=== PATIENT | male | born 1950 | race Caucasian/White ===

== ENCOUNTER → 2024-03-17 09:00 | Outpatient (REF) | payer MEDICARE, OTHER, SELFPAY | LOC: DHSLP 09:00 | PROVIDERS: ATTENDING PHYSICIAN Internal Medicine | DX: G47.33 Obstructive sleep apnea (adult) (pediatric) (principal); R06.83 Snoring; J43.9 Emphysema, unspecified; I10 Essential (primary) hypertension | CPT/HCPCS: 95806 ==

== ENCOUNTER 2025-03-28 08:19 | Observation (INO) | payer MEDICARE, OTHER, SELFPAY ==
[2025-03-28] VITALS (10 sets, daily range): BP systolic 141–181; BP diastolic 86–110; BMI 30.1
--- NOTE | 2025-03-28 04:37 | ED.CVA ---
History of Present Illness
General
Chief Complaint: CVA/TIA Symptoms
Source: patient and spouse
Exam Limitations: none
Time Seen by Provider: 03/28/25 04:29
Nursing documentation reviewed up to this point in time: agreed with
Onset of Stroke Symptoms
Onset of symptoms known: Yes
Date of onset of symptoms: 03/28/25
Time of onset of symptoms: 03:30
History of Present Illness
History of Present Illness:
Note:
CHIEF COMPLAINT(S)
- Left-sided weakness and heaviness.
HISTORY OF PRESENT ILLNESS
The patient is a 74-year-old male who presented with left-sided weakness and heaviness. The symptoms began in the middle of the night, around 3:00 AM, when the patient woke up to urinate. He noticed difficulty and a sensation of heaviness
particularly on the left side of his body, affecting both the arm and leg. The patient describes this sensation as his left side feeling heavier than the right. He reports no chest pain and was able to breathe normally. The patient took aspirin
prior to coming to the emergency department but does not take it regularly.
SOCIAL HISTORY
The patient occasionally smokes cigars and drinks alcohol less than once a week. He denies the use of illicit drugs.
PHYSICAL EXAM
- Nursing notes reviewed and vital signs reviewed.
- The patient exhibits no apparent neurological deficits during the examination.
- Ears, Nose, and Tongue: Pupils are equal, round, and reactive to light, with extraocular muscles intact.
- Neck: No jugular venous distention.
- Cardiovascular: S1 and S2 sounds are clear with no murmurs.
- Pulmonary: Lungs are clear bilaterally; no respiratory distress observed.
- Abdomen: Soft, non-tender, non-distended with no masses or organomegaly.
- Extremities: Normal pulses in all extremities; full range of motion observed.
- Neurological: Cranial nerves II through XII are intact; muscle strength in all extremities is equal, with no sensory deficits.
PROBLEM LIST
- Acute: Left-sided weakness.
- Chronic: None mentioned.
PLAN
- The patient will undergo further evaluation to rule out conditions such as a transient ischemic attack or stroke due to the left-sided weakness and heavy sensation. This will likely include imaging and possibly other diagnostic tests as deemed
appropriate.
DIFFERENTIAL DIAGNOSIS
The Differential Diagnosis includes, in no particular order and is not limited to:
1. Transient Ischemic Attack
2. Cerebrovascular Accident (Stroke)
3. Peripheral Nerve Disorder
4. Multiple Sclerosis
5. Brain Tumor
6. Hypoglycemia
7. Electrolyte Imbalance
8. [place] Palsy (though less likely given the limb involvement)
9. Migraine Variant
10. Conversion Disorder
CARE-UPDATE
03/28/25 - 05:[address] perfusion, CT angiography of the head and neck, and non-contrast CT head results are normal, showing only chronic microvascular disease. The patients weakness is improving, with an NIH stroke scale score of zero, indicating no
immediate need for TNK treatment. The patient self-administered aspirin 325 mg at home. The plan is to admit the patient for further evaluation of a transient ischemic attack (TIA).
EKG
My independent EKG interpretation is:
- Time of EK:32 AM on 03/28/2025
- Rhythm: Sinus bradycardia
- Heart rate: 50 bpm
- [place]: Left axis deviation
- QRS duration: Normal
- QT interval: Normal
- MS interval: Normal
- Abnormalities: No signs of ischemia
Disposition:
SUMMARY OF ENCOUNTER
The patient, a 74-year-old male, presented to the emergency department with left-sided weakness and heaviness that began in the middle of the night. The evaluation included imaging and diagnostic tests to rule out conditions such as a stroke or a
transient ischemic attack (TIA). The CT perfusion, CT angiography, and non-contrast CT head results showed no acute abnormalities, only chronic microvascular disease. The patients symptoms showed improvement, and an NIH stroke scale score of zero
was noted, negating the need for thrombolytic treatment. The patient had taken aspirin 325 mg before presenting to the emergency department.
DISPOSITION
Admit
ASSESSMENT
The patient is assessed with a probable transient ischemic attack (TIA) given the sudden onset of left-sided weakness with improvement, and the normal imaging studies.
PLAN
The plan is to admit the patient for telemetry and further evaluation under the care of the hospitalist to monitor for any recurrence of symptoms or any developments suggestive of a cerebrovascular event.
INDEPENDENT REVIEW OF LABS AND INTERPRETATION OF TESTS
- My independent EKG interpretation is sinus bradycardia, heart rate 50 bpm, with left axis deviation, normal QRS duration, QT, and MS interval, and no signs of ischemia.
MEDICATION RECONCILIATION
- The patient self-administered aspirin 325 mg prior to coming to the emergency department.
MEDICAL DECISION MAKING
- Number and Complexity of Problems Addressed: The differential diagnosis includes Transient Ischemic Attack, Cerebrovascular Accident (Stroke), Peripheral Nerve Disorder, Multiple Sclerosis, Brain Tumor, Hypoglycemia, Electrolyte Imbalance, [place]
Palsy, Migraine Variant, and Conversion Disorder.
- Data:
Category 1: Non-emergency department records reviewed include normal CT perfusion, CT angiography, and non-contrast CT head results.
Category 2: My independent interpretation of EKG indicates sinus bradycardia with left axis deviation.
DIAGNOSIS
- Transient Ischemic Attack (TIA) - ICD-10: G45.9
Phy Exam
Physical Exam
Physical Exam:
.
Course
Orders/Labs/Results
Orders:
Orders
03/28/25 04:23
EKG [Electrocardiogram (*1)] Urgent
Reason for Study: Fatigue / Weakness
EKG- Treatment ONCE
03/28/25 04:33
CT HEAD STROKE ALERT W/o Cont Urgent
Comment:
Reason For Exam: Left Side Heaviness
Bedside Glucose- Treatment ONCE
Cardiac Monitoring- Treatment ONCE
IV Insert/Care/Rem.- Treatment PRN
Vital Signs As Directed
Frequency: Other
Weight As Directed
Frequency: Once
Comment: ZERO STRETCHER SCALE FOR ACCURATE WEIGHT
O2 Therapy [RESP] Urgent
Titrate/Wean O2 to maintain O2 sat greater than (%): 93
Special Instructions: MAINTAIN CONTINUOUS O2 SATS > OR = 93%
03/28/25 04:34
CT HEAD/NECK ANG STROKE ALERT Urgent
Comment: incorrect order by attending
Reason For Exam: left sided weakness, upon waking 330
Cardiac Monitoring- Treatment ONCE
Pulse Ox/cont/shift [RESP] Stat
Quantity: 1
03/28/25 04:36
Complete Blood Count/With Diff Urgent
Comprehensive Metabolic Panel Urgent
PTT Urgent
Prothrombin Time Urgent
Troponin I Urgent
03/28/25 04:38
CT BRAIN PERF STROKE ALERT Urgent
Comment:
Reason For Exam: left side weakness 330a
Abnormal Lab Results
03/28/25
04:36
MCH 32.1 H pg
(27.0-31.0)
Absolute Monos (auto) 0.8 H 10^3/uL
(0.1-0.6)
Monocytes % 11.6 H %
(1.7-9.3)
BUN 22 H mg/dl
(9-20)
Glucose 120 H mg/dl
(70-99)
03/28/25 04:36
03/28/25 04:36
Vital Signs
Initial and Last Documented VS:
Initial Vital Signs
Temp Pulse Resp BP Pulse Ox
97.8 F 61 18 154/106 98
03/28/25 04:24 03/28/25 04:24 03/28/25 04:24 03/28/25 04:24 03/28/25 04:24
Last Documented Vital Signs
Temp Pulse Resp BP Pulse Ox
97.7 F 61 18 159/88 96
03/28/25 05:00 03/28/25 04:54 03/28/25 04:24 03/28/25 05:00 03/28/25 05:05
*Pulse Oximetry
SaO2: 98
Oxygen Mode of Delivery: Room air
Patient hypoxic: no
*Critical Care Note
Total Time (30-74mins, 75-104mins- exclusive of procedures): Not Applicable
ED Attending Note
-
Portions of this chart may have been created with voice recognition software.� Occasional wrong word or��sound alike� substitutions may have occurred due to the inherent limitations of voice recognition software.
Discharge Plan
Departure
Patient Disposition: Admit
Date of Disposition: 03/28/25
Time of Disposition: 05:49
Admit to: Telemetry
Presentation/result/management discussed w/ accepting MD/DO: Hospitalist
Patient with high blood pressure during this ER visit?: Yes
Condition: Good
Discharge Problem:
Transient ischemic attack (TIA)
Referrals:
UNKNOWN - PT DOES,NOT KNOW [Family Provider]
Interventions
Interventions:
*Risk Screen - Suicide Last Done: 03/28/25 04:25
*General Assessment Last Done: 03/28/25 05:05
*Neglect/Abuse Screening Last Done: 03/28/25 04:25
*ED- Fall Risk Assessment Last Done: 03/28/25 05:05
*ED COVID-19 Vaccine History Last Done: 03/28/25 05:05
ED- Pulmonary Assessment Last Done: 03/28/25 05:05
ED- Neurological Assessment Last Done: 03/28/25 05:05
ED- Cardiac Assessment Last Done: 03/28/25 05:05
ED Swallowing Screen Last Done: 03/28/25 05:39
Discharge Date and Time
Print Language: UZBEK
[2025-03-28 04:43] LABS: Hematocrit 45.7 % (39.0-52.0); Hemoglobin 16.4 g/dL (13.0-18.0); Mean Corp Hgb Conc. 35.9 g/dL (33.0-37.0); Mean Corpuscular Volume 89.4 fL (80.0-94.0); Nucleated Red Blood Cells % 0 % (-); Platelet Count 178 10^3/uL (130-400); Red Cell Dist. Width 12.8 % (11.5-14.5)
[2025-03-28 04:56] LABS: INR 0.84; PT 12.0 Sec (11.4-14.6)
[2025-03-28 04:57] LABS: APTT 26.5 Sec (23.4-35.0)
[2025-03-28 05:08] LABS: ALT (SGPT) 14 U/L (0-50); AST (SGOT) 20 U/L (17-59); Albumin 4.2 g/dl (3.5-5.0); Alkaline Phosphatase 52 U/L (38-126); Blood Urea Nitrogen 22 mg/dl (9-20); Calcium 8.8 mg/dl (8.4-10.2); Carbon Dioxide 24 mmol/L (22-30); Chloride 105 mmol/L (98-107); Estimated Creatinine Clearance 77 ml/min; Glucose 120 mg/dl (70-99); Potassium 4.1 mmol/L (3.5-5.1); Sodium 135 mmol/L (135-145); Total Protein 6.9 g/dl (6.3-8.2); eGFR > 60.00
[2025-03-28 06:15] LABS: Troponin I < 0.012 ng/ml
--- NOTE | 2025-03-28 06:48 | HPS.HSE ---
Family Physician
-
Family Physician: NOT KNOW UNKNOWN - PT DOES
Chief Complaint
-
L Weakness
History of Present Illness
Patient is a 74y M with PMH significant for hypertension and depression who presents to ED complaining of L sided weakness. Patient states that he felt well yesterday upon going to bed. No recent illness, fevers / chills, etc. He woke around
3:30 this AM to use the bathroom. When he stood from bed, his LLE 'gave out' and he fell onto his R knee. Patient noted that his LLE and his LUE felt very heavy and sluggish. he had no numbness or tingling. No headache, slurred speech or vision
changes. Pateint woke his and took a full dose ASA at home and then presented to the ED for further evaluation.
He denies any prior history of similar symptoms. No prior OR, CVA, etc.
Upon arrival to the ED, patient noted that his symptoms had fully resolved.
He is currently resting comfortably and feels at baseline.
Medical History
Past Medical History
Past Medical History: Reports Other
Additional Past Medical History:
Hypertension
Anxiety / Depression
Past Surgical History: Reports Other
Additional Past Surgical History:
T&A
Social History
Tobacco: Smoker (Current every day cigar smoker. About 3-4 cigars daily.)
Alcohol: Occasional
Drug: None
Family History
Family History: Other (Father: CVA, CHF Mother: TIAs)
Allergies / Home Medications
Allergies reflects when Allergies were last updated in [employer].
Home Medications with original date entered in [employer]
Allergy/Medication List:
Allergies
Allergy/AdvReac Type Severity Reaction Status Date / Time
No Known Allergies Allergy Verified 03/28/25 04:28
Home Medications
escitalopram oxalate 10 mg tablet (Lexapro) 10 mg PO DAILY 03/28/25
ramipril 5 mg capsule 5 mg PO DAILY 03/28/25
Review of Systems
-
History Source: Patient
A 12 point ROS was completed and negative except as noted: Yes
Constitutional: Denies Fever or Chills
Respiratory: Denies Cough or Trouble Breathing
Cardiac: Denies Chest Pain or Palpitations
Abdomen/GI: Denies Abdominal Pain, Nausea, Vomiting or Diarrhea
: Denies Dysuria or Frequency
Musculoskeletal: Denies Joint Pain or Edema
Neurological: Reports Weakness; Denies Dizzy, Headache or Numbness
Physical Exam
Vital Signs
Vital Signs
Temp Pulse Resp BP Pulse Ox
97.7 F 52 20 159/94 96
03/28/25 05:00 03/28/25 06:22 03/28/25 06:22 03/28/25 06:22 03/28/25 05:05
Physical Exam
General: Other (74y M in no acute distress.)
HEENT: Moist mucous membranes and PERRLA
Respiratory: Clear; No Wheezes, Rales or Rhonchi
Cardiac: S1/S2 and Regular Rhythm; No Murmur
GI: Soft, Non Tender, Non Distended and Normal Bowel Sounds
Musculoskeletal: No Clubbing, No Cyanosis and No Edema
Neuro: AO x 3, No Motor Deficits and Nonfocal/grossly intact
Laboratory Results
-
03/28/25 04:36
03/28/25 04:36
Laboratory Results
PT 12.0 Sec (11.4-14.6) 03/28/25 04:36
INR 0.84 03/28/25 04:36
APTT 26.5 Sec (23.4-35.0) 03/28/25 04:36
Total Bilirubin 0.5 mg/dl (0.2-1.3) 03/28/25 04:36
AST 20 U/L (17-59) 03/28/25 04:36
ALT 14 U/L (0-50) 03/28/25 04:36
Alkaline Phosphatase 52 U/L (38-126) 03/28/25 04:36
Troponin I < 0.012 ng/ml 03/28/25 04:36
Impression/Plan
-
A/P: Patient is a 74y M with PMH significant for hypertension who presents to ED for evaluation of left sided weakness upon waking this AM.
CVA / TIA
- Observe overnight for further evaluation and treatment.
- Symptoms have fully resolved, NIH = 0 at present.
- CT, CT Perfusion unremarkable.
- CTA shows diminutive proximal basilar artery.
- Follow neuro exam for any changes / recurrent symptoms.
- ASA / Plavix.
- MRI. Neuro eval. PT / OT.
- Check lipids, A1C, etc.
- Adjust med regimen as needed for risk factor modification.
Hypertension
- Continue ramipril.
- Permissive hypertension for now with hydralazine for very high BP.
- Adjust regimen as needed for goal of normotension at discharge.
Anxiety / Depression
- Stable. Continue Lexapro.
DVT Prophylaxis: SCDs
Code Status: Full
--- NOTE | 2025-03-28 09:01 | CON.NEURO4 ---
Addendum entered and electronically signed by Nate Vargas MD 03/28/25 10:36:
Studies reviewed.
I have personally examined the patient. I reviewed and agree with the SPIKE MAKER's Note.
My addenda:
Awake, alert, interactive. No acute distress.
Speech intact.
Follows 2-step requests w/o difficulty. No tremor.
Extra-ocular movements grossly intact.
Facial movements full and symmetric. Hearing intact to normal conversational volume.
Normal UE movements bilaterally.
Neck: full ROM.
Chest: no dyspnea
Heart: no JVD
Ext: (-) Clubbing, (-) Cyanosis, (-) Edema
IMPRESSIONS/RECOMMENDATIONS:
Abrupt onset of left leg and arm weakness
Most likely secondary to TIA based on unremarkable CT perfusion, CT of head and absence of finding by CT angiogram of head and neck
Continue both aspirin and clopidogrel for total of 21 days, then aspirin alone potentially lifelong
Outpatient cardiac monitoring for dysrhythmia with consideration for prolonged monitoring
Outpatient cancer screening
Outpatient sleep testing as patient has known severe sleep apnea which may also be a risk factor for most recent events
Advance atorvastatin from 40 mg to 80 mg if LDL greater than 70
D/W patient
Will continue to follow patient.
Original Note:
Documented by User: Vanessa Montague NP 03/28/25 09:54
Consultation - Neurology 4
-
CONSULTING PHYSICIAN: Nate Vargas MD
REFERRING PHYSICIAN: Hospitalists/Dr. Liu
DICTATED BY: AUGUSTUS Maciel
DATE/TIME OF REQUEST: 03/28/25
DATE/TIME OF CONSULTATION: 03/28/25
Reason for Consultation: Transient left-sided weakness
History of Present Illness:
This is a 74-year-old right-handed male who has presented to the hospital with report of left-sided weakness. Patient reports that he went to bed last night (03/27/25) around 2300 in his usual state. Overnight around 0330 he woke up to use the
bathroom. Upon standing, his left leg felt weak and gave-out on him causing him to fall to the ground. He was able to get up but noted that his left arm and leg felt 'heavy.' He denies a spinning sensation but reports feeling off-balance and his
gait was abnormal. He took a full dose aspirin prior to coming to the ER. Upon arrival in the ER about 45 minutes later, his symptoms had resolved and he felt back at his baseline. Blood pressure in the ER has been elevated up to 181/105. CT head,
CTA head/neck, CT perfusion were obtained and AI interpretation is negative for any acute abnormalities. He was not a candidate for TNK/IAT due to NIHSS 0. He denies any headache, vision changes, speech/swallowing difficulty, and numbness. He denies
any history of TIA, stroke, or events like this in the past. He does not a history of severe sleep apnea and cpap usage. He notes that he lost about 35 pounds 7-8 years ago and stopped wearing his cpap after that.
Past Medical History: HTN, CKD, NILDA (not using cpap, reports lost weight), pulmonary emphysema, depression
Surgical History: Adenoidectomy.
Family History: Mother- dementia. Father- CVA.
Social History: Former cigarette smoker, occasional cigar. Occasional alcohol. Denies illicit drug usage.
Allergies: No known allergies.
Home Medications: See below.
Review of Symptoms:
Patient denies any fever, headache, chest pain, shortness of breath, GI or symptoms.
�Per the HPI.�All systems are reviewed negative except above.
Physical Exam:
The patient is afebrile, abdomen is nondistended, breathing is unlabored, skin is warm and dry, no edema, +high arches/hammertoes.
NIH Stroke Scale:
I performed the NIH stroke scale on the patient on 03/28/25 at 0910. The patient scored 0 points on the NIH stroke scale assessment, which were assigned as follows: See below.
Neurologic Examination:
The patient is awake, alert and oriented x 3. He is able to follow commands and answer questions appropriately. There is no aphasia or dysarthria. On cranial nerve assessment, pupils are 3 mm bilateral, round and reactive to light and
accommodation. Visual duvall are full. Extraocular movements are intact. Facial sensations are intact and bilaterally symmetrical, there is no facial asymmetry. Hearing is intact bilaterally to normal conversation volume. Tongue palate and uvula are
midline. Sternocleidomastoid strengths are full bilaterally. Motor strengths are 5/5 bilateral upper and lower extremities on medical research [place] scale. There is no drift or involuntary movement noted. Deep tendon reflexes are 2+ bilateral
upper and lower extremities and Babinski is absent bilaterally. There was no extinction noted on double simultaneous stimulation. Coordination is intact by finger to nose bilaterally.
Lab Results: See below.
Neuro Imaging:
1. CT Head 03/28/25: final report pending
2. CTA head/neck 03/28/25: final report pending
3. CT Perfusion 03/28/25: final report pending
Differentials for the patient's presentation include:
1. Transient left-sided weakness; etiology likely TIA versus small ischemic stroke.
2. Hypertension.
3. Bradycardia on telemetry monitoring.
Patient has the following risk factors for their symptoms: HTN, NILDA, former smoker, age
IV Tenecteplase/IAT candidacy: Not a candidate due to NIHSS 0/resolution of symptoms.
Recommendations:
-Patient would like to defer MRI brain imaging at this point, okay to obtain as an outpatient.
-Continue DAPT with aspirin 81mg and clopidogrel 75mg daily for 21 days. After 21 days, stop clopidogrel and continue aspirin 81mg daily only, indefinitely.
-Goal normotension.
-Recommend outpatient Cardiology evaluation for extended cardiac monitoring/bradycardia workup.
-LDL goal <70. Lipid panel pending. Initiate atorvastatin 40mg daily.
-Goal normoglycemia, hbA1c is pending.
-PT/OT evaluations.
-NIHSS and neurological checks per unit guidelines.
-Provide patient with a stroke education packet.
-Continue to NOT smoke.
-DVT prophylaxis.
-Would complete home sleep study to re-evaluate for sleep apnea.
-Okay to resume all usual activities.
-Follow-up with Neurology as an outpatient in about 1-2 weeks.
Discussed patient care with: Dr. Vargas, the patient
Vital Signs and Labs
-
Vital Signs and Labs:
Vital Signs
Temp Pulse Resp BP Pulse Ox
97.7 F 45 12 160/93 96
03/28/25 05:00 03/28/25 09:00 03/28/25 09:00 03/28/25 09:00 03/28/25 05:05
Lab Results
03/28/25 04:36
03/28/25 04:36
PT 12.0 Sec (11.4-14.6) 03/28/25 04:36
INR 0.84 03/28/25 04:36
APTT 26.5 Sec (23.4-35.0) 03/28/25 04:36
Sodium 135 mmol/L (135-145) 03/28/25 04:36
Potassium 4.1 mmol/L (3.5-5.1) 03/28/25 04:36
BUN 22 mg/dl (9-20) H 03/28/25 04:36
Glucose 120 mg/dl (70-99) H 03/28/25 04:36
Calcium 8.8 mg/dl (8.4-10.2) 03/28/25 04:36
Medications
-
Active Medications
Generic Name Dose Route Start Last Admin
Trade Name Freq PRN Reason Stop Dose Admin
Hydralazine HCl 5 mg 03/28/25 09:12
Hydralazine 20 Mg/Ml Vial IV 04/25/25 09:11
Q6HPRN PRN
SBP > 200 / DBP > 110
Home Medications
�Medication �Instructions �Recorded
escitalopram oxalate 10 mg tablet 10 mg PO DAILY 03/28/25
(Lexapro)
hydrochlorothiazide 12.5 mg tablet 12.5 mg PO DAILY 03/28/25
ramipril 5 mg capsule 5 mg PO DAILY 03/28/25
NIH Stroke Score
Subsequent NIH Scale
Date of Subsequent NIH Scale: 03/28/25
Time of Subsequent NIH Scale: 09:10
NIH Stroke Score
Level of Consciousness: 0 - Alert
LOC Questions: 0-Answers both correctly
LOC Commands: 0-Performs both correctly
Best Horizontal Gaze: 0-Normal
Visual Duvall: 0=Normal, no visual loss
Facial Palsy: 0=Normal, symmetrical
Motor - Right Arm: 0=No drift 10 seconds
Motor - Left Arm: 0=No drift 10 seconds
Motor - Right Le-No drift 5 seconds
Motor - Left Le-No drift 5 seconds
Limb Ataxia: 0-Absent
Sensation: 0-Normal
Best Language: 0-No aphasia
Dysarthria: 0-Normal
Extinction and Inattention: 0-No abnormality
NIH Total Score:: 0
Modified [place] (mRS) Score
Modified [place] Scale (mRS): No symptoms
Score: 0
Alteplase Contraindication
Inclusion and Exclusion criteria reviewed: Yes

Documented by User: Nate Vargas MD 03/28/25 10:25
NIH Stroke Score
NIH Stroke Score
NIH Total Score:: 0
Modified [place] (mRS) Score
Score: 0
--- NOTE | 2025-03-28 09:11 | CM ---
CM reviewed chart and met with pt bedside in ED. Pt lives alone in 2 story home, [address]. First floor half BA, full flight to second floor BR/full BA.
Independent in ADLs, personal care and ambulation at baseline, no DME
No hx VN/SNF
Confirms prescription coverage
CRAIG reviewed and signed.
PCP: Tarun Guy
Pharmacy: [facility] [address]
Anticipate discharge home, watch for needs
[2025-03-28] MEDS: LEXAPRO 10 MG PO (09:53)
[2025-03-28] MEDS: PLAVIX 75 MG PO (09:53)
[2025-03-28] MEDS: ALTACE 5 MG PO (09:53)
[2025-03-28] MEDS: LOW STRENGTH ASPIRIN 81 MG PO (09:53)
[2025-03-28 11:45] LABS: Very Low Density Lipoprotein 56 mg/dl (0-30)
[2025-03-28 11:46] LABS: HDL Cholesterol 38 mg/dl; LDL Cholesterol, Calculated 65 mg/dl
--- NOTE | 2025-03-28 12:14 | W.DCSUMMARY ---
Discharge Summary
Discharge Data
Date of Admission: 03/28/25
Date of Discharge: 03/28/25
Total time spent discharging patient (in min): 45
-
Pending Results: No
Hospital Course
Mr. Aparicio is a 74-year-old male with a medical history of hypertension and viral pericarditis (remotely, age 32) who presented with acute onset left upper and lower extremity weakness. He had no headache, vision changes, or dysarthria. He took
full dose of aspirin and presented to the ED for further evaluation. Upon arrival in the ED his symptoms had completely resolved. His vital signs were remarkable only for mild hypertension and bradycardia with heart rate around 50-60. Patient
reports that his heart rate is usually on the lower side. His labs were unremarkable. CT brain and CT angiography of head and neck showed no acute abnormalities. He was started on aspirin, Plavix, and statin. He was evaluated by neurology who
believes this was a transient ischemic attack and did not feel further workup with MRI would add significant value to the treatment plan. He had no evidence of arrhythmia on telemetry monitoring. He will be discharged to home with instructions to
take aspirin and Plavix for 21 days and aspirin alone thereafter. He should continue taking high intensity statin therapy. He does report that he had myalgias after starting treatment with statins previously. He has been advised to discontinue
his statins if he develops myalgias again and contact his PCP about potentially switching to a different statin. He has also been instructed to follow-up with cardiology for further evaluation and potential ambulatory cardiac monitoring. He was
medically stable at time of hospital discharge. He was able to ambulate without difficulty. He was advised to go to the nearest emergency department or call 911 if his symptoms recur or if he develops other concerning symptoms.
General: No Apparent Distress, Comfortable and Conversant
HEENT: NormoCephalic, Moist mucous membranes, Atraumatic
Respiratory: Clear and Non Labored Respirations
Cardiac: S1/S2 and Regular Rhythm; No Rub or Gallop
GI: Soft, Non Tender, Non Distended and Normal Bowel Sounds
Musculoskeletal: No Edema, no deformity
: NO Belcher
Neuro: Awake, Alert, Nonfocal/grossly intact
Psych: Calm and Intact Judgment/Insight
Discharge Plan
-
Patient Disposition: Home (Routine Discharge)
Discharge Diagnosis/Procedures: TIA
Activity Restrictions/Additional Instructions:
Mr. Aparicio is a 74-year-old male with a medical history of hypertension and viral pericarditis (remotely, age 32) who presented with acute onset left upper and lower extremity weakness. He had no headache, vision changes, or dysarthria. He took
full dose of aspirin and presented to the ED for further evaluation. Upon arrival in the ED his symptoms had completely resolved. His vital signs were remarkable only for mild hypertension and bradycardia with heart rate around 50-60. Patient
reports that his heart rate is usually on the lower side. His labs were unremarkable. CT brain and CT angiography of head and neck showed no acute abnormalities. He was started on aspirin, Plavix, and statin. He was evaluated by neurology who
believes this was a transient ischemic attack and did not feel further workup with MRI would add significant value to the treatment plan. He had no evidence of arrhythmia on telemetry monitoring. He will be discharged to home with instructions to
take aspirin and Plavix for 21 days and aspirin alone thereafter. He should continue taking high intensity statin therapy. He does report that he had myalgias after starting treatment with statins previously. He has been advised to discontinue
his statins if he develops myalgias again and contact his PCP about potentially switching to a different statin. He has also been instructed to follow-up with cardiology for further evaluation and potential ambulatory cardiac monitoring. He was
medically stable at time of hospital discharge. He was able to ambulate without difficulty. He was advised to go to the nearest emergency department or call 911 if his symptoms recur or if he develops other concerning symptoms.
Referrals:
Tarun Guy DO [Family Provider, Internal Medicine]
Dustin Milan MD [Active, Cardiology]
Referral Note: TIA, eval for potential ambulatory cardiac monitoring
Prescriptions:
New
atorvastatin 40 mg Tablet
40 mg PO QPM 30 Days Qty: 30 0RF
clopidogrel 75 mg Tablet
75 mg PO DAILY 21 Days Qty: 21 0RF
aspirin 81 mg Tablet,Chewable
81 mg PO DAILY 90 Days Qty: 90 0RF
Continued
ramipril 5 mg Capsule
5 mg PO DAILY
escitalopram oxalate [Lexapro] 10 mg Tablet
10 mg PO DAILY
hydrochlorothiazide 12.5 mg Tablet
12.5 mg PO DAILY
Discharge Orders:
Discharge Patient (As Directed); Ordered 03/28/25
Ordered By: Ventura Shin
Discharge Date and Time
Discharge Date/Time: 03/28/25 10:58
Print Language: MONEGASQUE
[2025-03-28 12:25] LABS: Ferritin 63.6 ng/ml (17.9-464.0)
[2025-03-28 12:34] LABS: Glycohemoglobin (HgbA1c) 5.7 % (4.0-5.6)
[2025-03-28 12:56] LABS: Folate 5.6 ng/ml (2.76-20); Vitamin B12 611 pg/ml (239-931)
== END 2025-03-28 10:58 | disposition home or self-care (01) ==
LOC: ED 08:19
PROVIDERS: ADMITTING PHYSICIAN Hospitalist; ATTENDING PHYSICIAN Internal Medicine; CONSULT PHYSICIAN Psychiatry & Neurology Neurology; EMERGENCY PHYSICIAN Emergency Medicine; FAMILY PHYSICIAN Internal Medicine
DX: G45.9 Transient cerebral ischemic attack, unspecified (principal); I12.9 Hypertensive chronic kidney disease with stage 1 through stage 4 chronic kidney disease, or unspecified chronic kidney disease; F32.A Depression, unspecified; F41.9 Anxiety disorder, unspecified; F17.290 Nicotine dependence, other tobacco product, uncomplicated; G47.33 Obstructive sleep apnea (adult) (pediatric); N18.9 Chronic kidney disease, unspecified; J43.9 Emphysema, unspecified; I65.23 Occlusion and stenosis of bilateral carotid arteries; R00.1 Bradycardia, unspecified; Z79.899 Other long term (current) drug therapy; Z82.3 Family history of stroke; Z82.49 Family history of ischemic heart disease and other diseases of the circulatory system
CPT/HCPCS: 0042T; 70450; 70496; 70498; 80053; 80061; 82607; 82728; 82746; 83036; 84443; 84484; 85025; 85610; 85730; 93005; 99285; G0378; Q9967

== ENCOUNTER → 2025-07-11 09:39 | Outpatient (REF) | payer MEDICARE, OTHER, SELFPAY | LOC: MRI 3T 09:39 | PROVIDERS: ATTENDING PHYSICIAN Registered Nurse Critical Care Medicine; FAMILY PHYSICIAN Internal Medicine | DX: R53.1 Weakness (principal) | CPT/HCPCS: 70551 ==

== ENCOUNTER → 2025-08-21 11:15 | Outpatient (REF) | payer MEDICARE, OTHER, SELFPAY | LOC: HWRCS 11:15 | PROVIDERS: ATTENDING PHYSICIAN Internal Medicine Cardiovascular Disease; FAMILY PHYSICIAN Internal Medicine | DX: G45.9 Transient cerebral ischemic attack, unspecified (principal) | CPT/HCPCS: 93306 ==